=== PATIENT | female | born 1990 | race Caucasian/White ===

== ENCOUNTER → 2024-01-12 08:37 | Outpatient (REF) | payer OTHER, SELFPAY | LOC: PNTC 08:37 | PROVIDERS: ATTENDING PHYSICIAN Obstetrics & Gynecology | DX: O99.210 Obesity complicating pregnancy, unspecified trimester (principal); O34.219 Maternal care for unspecified type scar from previous cesarean delivery | CPT/HCPCS: 76816 ==

== ENCOUNTER → 2024-02-09 08:27 | Outpatient (REF) | payer OTHER, SELFPAY | LOC: PNTC 08:27 | PROVIDERS: ATTENDING PHYSICIAN Obstetrics & Gynecology | DX: O34.219 Maternal care for unspecified type scar from previous cesarean delivery (principal); O99.210 Obesity complicating pregnancy, unspecified trimester | CPT/HCPCS: 76816 ==

== ENCOUNTER → 2024-02-23 08:34 | Outpatient (REF) | payer OTHER, SELFPAY | LOC: PNTC 08:34 | PROVIDERS: ATTENDING PHYSICIAN Obstetrics & Gynecology | DX: O34.219 Maternal care for unspecified type scar from previous cesarean delivery (principal); O99.210 Obesity complicating pregnancy, unspecified trimester | CPT/HCPCS: 59025; 76815 ==

== ENCOUNTER → 2024-03-01 08:19 | Outpatient (REF) | payer OTHER, SELFPAY | LOC: PNTC 08:19 | PROVIDERS: ATTENDING PHYSICIAN Obstetrics & Gynecology | DX: O34.219 Maternal care for unspecified type scar from previous cesarean delivery (principal); O99.210 Obesity complicating pregnancy, unspecified trimester | CPT/HCPCS: 59025; 76815 ==

== ENCOUNTER → 2024-03-08 08:19 | Outpatient (REF) | payer OTHER, SELFPAY ==
[2024-03-08 09:28] LABS: Urine Albumin Negative (Neg - Trace); Urine Bilirubin Negative (Negative); Urine Character Clear (Clear); Urine Color Straw; Urine Glucose Negative (Negative); Urine Ketone Negative (Negative); Urine Leukocyte Negative (Negative); Urine Nitrite Negative (Negative); Urine Occult Blood Negative (Negative); Urine Urobilinogen Negative (Neg - 1+)
[2024-03-08 09:31] LABS: % Basophils 0.3 % (0-2); % Eosinophils 1.6 % (0-6); % Lymphocytes 19.3 % (20.5-51.1); % Monocytes 3.9 % (1.7-9.3); % Neutrophils 73.9 % (42.2-75.2); Absolute Eosinophils 0.1 10^3/uL (0-0.7); Absolute Immature Granulocytes 0.1 10^3/uL (0-0.05); Absolute Lymphocytes 1.3 10^3/uL (1.2-3.4); Absolute Monocytes 0.3 10^3/uL (0.1-0.6); Hematocrit 30.4 % (37.0-47.0); Hemoglobin 10.5 g/dL (12.0-16.0); Mean Corp Hgb Conc. 34.5 g/dL (33.0-37.0); Mean Corpuscular Hgb 33.7 pg (27.0-31.0); Mean Corpuscular Volume 97.4 fL (81.0-99.0); Mean Platelet Volume 10.3 fL (7.4-10.4); Nucleated Red Blood Cells % 0 %; Platelet Count 167 10^3/uL (130-400); Red Blood Cell Count 3.12 10^6/uL (4.20-5.40); Red Cell Dist. Width 13.9 % (11.5-14.5); White Blood Cell Count 6.7 10^3/uL (4.8-10.8)
[2024-03-08 09:39] LABS: ALT (SGPT) 11 U/L (0-35); AST (SGOT) 20 U/L (14-36); Albumin 3.4 g/dl (3.5-5.0); Alkaline Phosphatase 107 U/L (38-126); Blood Urea Nitrogen 10 mg/dl (7-17); Calcium 9.2 mg/dl (8.4-10.2); Carbon Dioxide 19 mmol/L (22-30); Chloride 108 mmol/L (98-107); Glucose 129 mg/dl (70-99); Sodium 131 mmol/L (135-145); Total Bilirubin 0.4 mg/dl (0.2-1.3); eGFR > 60.00
[2024-03-08 10:25] LABS: Protein/creatinine Ratio 0.2; Urine Protein 11 mg/dl
== END ==
LOC: PNTC 08:19
PROVIDERS: Obstetrics & Gynecology; ATTENDING PHYSICIAN Obstetrics & Gynecology
DX: O99.210 Obesity complicating pregnancy, unspecified trimester (principal); O34.219 Maternal care for unspecified type scar from previous cesarean delivery
CPT/HCPCS: 59025; 76816; 80053; 81003; 82570; 84156; 85025

== ENCOUNTER → 2024-03-15 08:27 | Outpatient (REF) | payer OTHER, SELFPAY | LOC: PNTC 08:27 | PROVIDERS: ATTENDING PHYSICIAN Obstetrics & Gynecology | DX: O99.210 Obesity complicating pregnancy, unspecified trimester (principal); O34.219 Maternal care for unspecified type scar from previous cesarean delivery | CPT/HCPCS: 59025; 76815 ==

== ENCOUNTER → 2024-03-22 08:25 | Outpatient (REF) | payer OTHER, SELFPAY | LOC: PNTC 08:25 | PROVIDERS: ATTENDING PHYSICIAN Obstetrics & Gynecology | DX: O99.210 Obesity complicating pregnancy, unspecified trimester (principal); O34.219 Maternal care for unspecified type scar from previous cesarean delivery | CPT/HCPCS: 59025; 76815 ==

== ENCOUNTER → 2024-03-29 08:28 | Outpatient (REF) | payer OTHER, SELFPAY | LOC: PNTC 08:28 | PROVIDERS: ATTENDING PHYSICIAN Obstetrics & Gynecology | DX: O99.210 Obesity complicating pregnancy, unspecified trimester (principal); O34.219 Maternal care for unspecified type scar from previous cesarean delivery | CPT/HCPCS: 59025; 76815 ==

== ENCOUNTER 2024-03-31 10:01 | Inpatient (IN) | payer OTHER, SELFPAY ==
[2024-03-31 10:25] VITALS: BP 133/72; BMI 42.5
[2024-03-31 10:40] LABS: Hematocrit 31.5 % (37.0-47.0); Hemoglobin 10.8 g/dL (12.0-16.0); Mean Corp Hgb Conc. 34.3 g/dL (33.0-37.0); Mean Corpuscular Hgb 32.9 pg (27.0-31.0); Mean Platelet Volume 10.1 fL (7.4-10.4); Platelet Count 206 10^3/uL (130-400); Red Blood Cell Count 3.28 10^6/uL (4.20-5.40); White Blood Cell Count 8.5 10^3/uL (4.8-10.8)
[2024-03-31] MEDS: ANCEF 10 IV (10:59)
[2024-03-31] MEDS: TYLENOL 1000 MG PO (10:59)
[2024-03-31] MEDS: BICITRA 30 ML PO (10:59)
[2024-03-31] MEDS: LR 1000 IV (10:59)
[2024-03-31] MEDS: TRANSDERM-SCOP 1 PATCH TRANSDERM (11:16)
[2024-03-31] MEDS: PITOCIN 30 UNITS/NSS 500 ML IV (12:57)
[2024-03-31] MEDS: MORPHINE SULFATE 2 MG IV (14:33)
[2024-03-31] MEDS: TORADOL 15 MG IV ×2 (17:55→23:58)
[2024-03-31] MEDS: FEOSOL PO (20:51)
[2024-04-01] MEDS: SYNTHROID 137 MCG PO (06:09)
[2024-04-01] MEDS: TORADOL 15 MG IV ×2 (06:09→12:17)
[2024-04-01 06:14] LABS: Hematocrit 25.6 % (37.0-47.0); Mean Corp Hgb Conc. 35.2 g/dL (33.0-37.0); Mean Corpuscular Hgb 33.3 pg (27.0-31.0); Mean Corpuscular Volume 94.8 fL (81.0-99.0); Mean Platelet Volume 10.3 fL (7.4-10.4); Platelet Count 196 10^3/uL (130-400); Red Cell Dist. Width 14.2 % (11.5-14.5)
--- NOTE | 2024-04-01 07:50 | W.PN.ANS.POP ---
Anesthesia Post Operative
- Anesthesia Post Op Note
Vital Signs Stable-See Nursing Note: Yes
Airway Patent: Yes
Adequate Pain Control: Yes
Change in Mental Status: No
Current Postoperative Nausea & Vomiting: No
Anesthesia Complications: No
General Anesthetic Recall: No
Unplanned Admission: No
Post Op Hydration Adequate: Yes
[2024-04-01] MEDS: FEOSOL 325 MG PO ×2 (07:58→20:56)
[2024-04-01] MEDS: ZOLOFT 25 MG PO (07:58)
[2024-04-01] MEDS: PRENATAL PLUS 1 TABLET PO (07:58)
[2024-04-01] MEDS: TYLENOL 650 MG PO (08:07)
[2024-04-01 14:34] LABS: Syphilis/T. pallidum Ab Reflex Negative (Negative)
[2024-04-01] MEDS: PERCOCET 5/325 1 TABLET PO ×3 (15:15→23:18)
[2024-04-01] MEDS: SENOKOT-S 1 TABLET PO (15:25)
[2024-04-02] MEDS: PERCOCET 5/325 1 TABLET PO (06:14)
[2024-04-02] MEDS: MOTRIN 600 MG PO ×2 (06:14→11:53)
[2024-04-02] MEDS: SYNTHROID 137 MCG PO (06:14)
[2024-04-02] MEDS: PRENATAL PLUS 1 TABLET PO (08:00)
[2024-04-02] MEDS: ZOLOFT 25 MG PO (08:00)
[2024-04-02] MEDS: FEOSOL 325 MG PO (08:00)
--- NOTE | 2024-04-02 10:20 | W.DS.TRANS ---
DC Summary - Mds Nurse
-
Discharge Instructions:
Discharge Diagnosis/Procedures section
Instructions:
Stand-Alone Forms: LDRP Delivery
Changes to Home Medications: No
Discharge Medications:
DC Medications w/original date entered in [employer]
Vitamin Tablet 1 tab PO DAILY Supplement 12/02/19
ferrous sulfate 325 mg (65 mg iron) tablet (FeroSul) 325 mg PO BID #30 tabs 05/23/21
levothyroxine 112 mcg tablet 137 mcg PO DAILY@0700 Thyroid 03/31/24
acetaminophen 325 mg tablet 650 mg (2 x 325 mg) PO Q4HPRN PRN mild pain #0 tabs 04/02/24
ibuprofen 600 mg tablet 600 mg PO Q6HPRN PRN cramps #45 tabs 04/02/24
oxycodone-acetaminophen 5 mg-325 mg tablet 1 tab PO Q4HPRN PRN moderate pain #10 tabs 04/02/24
sennosides 8.6 mg-docusate sodium 50 mg tablet (Stool Softener-Stimulant Laxative) 1 tab PO DAILYPRN PRN constipation #0 tabs 04/02/24
sertraline 25 mg tablet 25 mg PO DAILY #90 tabs 04/02/24
Home Medication Changes
Pending Results: No
[2024-04-02] MEDS: TYLENOL 650 MG PO (11:53)
== END 2024-04-02 14:21 | disposition home or self-care (01) | DRG 788 ==
LOC: LDRP 10:01
PROVIDERS: ADMITTING PHYSICIAN Obstetrics & Gynecology
PROC: 10D00Z1 Extraction of Products of Conception, Low, Open Approach (ICD-10-PCS; 2024-03-31)
DX: O34.211 Maternal care for low transverse scar from previous cesarean delivery (principal); N85.8 Other specified noninflammatory disorders of uterus; Z3A.39 39 weeks gestation of pregnancy; Z37.0 Single live birth; N83.8 Other noninflammatory disorders of ovary, fallopian tube and broad ligament; O34.83 Maternal care for other abnormalities of pelvic organs, third trimester; O99.214 Obesity complicating childbirth; O99.284 Endocrine, nutritional and metabolic diseases complicating childbirth; E06.3 Autoimmune thyroiditis
CPT/HCPCS: 36415; 85027; 86780; 86850; 86900; 86901